=== PATIENT | male | born 1985 | race Caucasian/White ===

== ENCOUNTER → 2019-11-26 | Outpatient (CLI) | payer OTHER, SELFPAY ==
[2016-07-15 18:19] VITALS: BMI 32.5
--- NOTE | 2019-11-26 16:40 | TISS_PTH ---
PATIENT: ZEINAB AGUILAR LOC: [facility] U#:[id number] AGE/SX: 34/M ROOM: RE11/26/[address]: Dr. Jesus Max MD : 1985 BED: DIS: 11/26/2019 SPEC #: [id number] RECD: 11/26/19 17:57 STATUS: OKSANA MARCIA #: [id number] SUSANA: 11/26/19 16:[address]: Jesus Max DEPT: SURGICAL PATHOLOGY RECD BY: Altagracia Chua ENTERED: 11/27/19 12:42 SP TYPE: Tissue Bx SEAN DR: Dr. Ronit Moreno MD Tissues: Skin of external auditory canal Procedures: Decalcification bone/plaque Surgery Specimen Level IV HEADER OPERATION: Biopsy PRE-OP DIAGNOSIS: Osteoma left ear canal TISSUE SUBMITTED: Left ear canal lump MICROSCOPIC DIAGNOSIS Left ear canal lump, biopsy: Consistent with osteoma with reactive changes. See comment. HARINDER:adwoa 12/01/19 COMMENT Correlation with clinical findings and appropriate follow up are necessary. Case has been reviewed in consultation with Dr. Menon who concurs with the above diagnosis. IDC:AM MICROSCOPIC DESCRIPTION Slides are reviewed. GROSS DESCRIPTION Received is one container labeled with the patient's name and not further designated. The specimen consists of a piece of bone measuring 0.5 x 0.4 x 0.3 cm. The entire specimen is submitted in one cassette after decalcification. / HARINDER:adwoa 11/27/19 TC:1 CPT: 80706, 73050
== END | disposition home or self-care (01) ==
LOC: LABSPEC 11-27 08:32
PROVIDERS: PCP Family Medicine; Referring Provider Otolaryngology; Visit Provider Otolaryngology
DX: D21.0 Benign neoplasm of connective and other soft tissue of head, face and neck (principal)
CPT/HCPCS: 88305; 88311

== ENCOUNTER → 2024-07-06 | Outpatient (CLI) | payer OTHER, SELFPAY ==
[2024-07-06 18:20] LABS: Hematocrit 41.4 % (40-54); Hemoglobin 14.4 g/dL (13.0-16.5); Mean Corp Hgb Conc 34.8 g/dL (32-36); Mean Corpuscular Hgb 27.8 pg (27.0-32.0); Mean Corpuscular Volume 79.9 fL (80-94); Mean Platelet Vol. 11.1 fl (6.2-12.0); Platelet Count 189 K/mm3 (150-450); RBC Distribution Width CV 11.9 % (11.6-14.6); RBC Distribution Width SD 34.3 fl (35.1-43.9); Red Blood Count 5.18 M/mm3 (4.6-6.2); White Blood Count 8.3 K/mm3 (4.4-11.0)
[2024-07-06 18:47] LABS: ALB/GLOB Ratio 1.7 RATIO (0.9-2.4); AST(SGOT) 22 U/L (<=37); Alanine Aminotransfer ALT/SGPT 18 U/L (<=46); Albumin, Serum 4.6 g/dL (3.5-5.0); Alkaline Phosphatase 69 U/L (40-129); Anion Gap 12 (5-15); BUN 14 mg/dL (4-19); BUN/Creat Ratio 12.1 RATIO (10-20); Calcium,Total 9.4 mg/dL (7.6-11.0); Carbon Dioxide 24.2 mmol/L (21.0-32.0); Chloride 103 mmol/L (98-108); Cholesterol 206 mg/dL (<=200); Creatinine, Serum 1.14 mg/dL (0.70-1.20); EST Glomerular Filtration Rate 84 (>60); Globulin 2.7 g/dL (2.2-4.2); Glucose 89 mg/dL (70-99); High Density Lipoprotein 64 mg/dL; Low Density Lipoprotein Calc. 132 mg/dL; Potassium 3.6 mmol/L (3.3-5.1); Protein, Total 7.3 g/dL (5.9-8.4); Sodium Level 139 mmol/L (133-145); Total Bilirubin 1.16 mg/dL (0.00-1.30); Triglycerides 52 mg/dL; Very Low Density Lipoprotein 10 mg/dL (5-40); cholesterol:hdl ratio screen 3.21
== END | disposition home or self-care (01) ==
LOC: MTLAB 16:13
PROVIDERS: PCP Registered Nurse; Referring Provider Registered Nurse; Visit Provider Registered Nurse
DX: Z00.00 Encounter for general adult medical examination without abnormal findings (principal)
CPT/HCPCS: 36415; 80053; 80061; 85027